=== PATIENT | female | born 1990 | race Caucasian/White ===

== ENCOUNTER 2022-02-07 15:44 | Emergency (ER) | payer MEDICAID ==
[2022-02-07] MEDS ORDERED: Sodium Chloride 0.9% 1,000 ML IV ONE (16:43)
[2022-02-07 17:37] LABS: CARBON DIOXIDE,CO2 25.7 mmol/L (21.0-32.0); POTASSIUM,K 3.6 mmol/L (3.5-5.1)
[2022-02-07] MEDS ORDERED: Ketorolac 30 MG/ML SDV IVPUSH ONE (17:48)
== END 2022-02-07 18:19 | disposition home or self-care (01) ==
LOC: MW.ED 15:44
DX: N93.9 Abnormal uterine and vaginal bleeding, unspecified (principal)
CPT/HCPCS: 36415; 76830; 80053; 81001; 85025; 87086; 96361; 96374; 99284; J1885; J7030; 99283